=== PATIENT | female | born 1980 | race Caucasian/White ===

== ENCOUNTER 2017-07-12 14:06 | Emergency (ER) | payer OTHER ==
[2017-07-12] MEDS ORDERED: Diphtheria,Pertussis(Acell),Tetanus Vaccine 0.5 ML SDV IM ONE (14:11)
[2017-07-12] MEDS ORDERED: Ketorolac 60 MG/2 ML SDV IM ONE (14:11)
[2017-07-12] MEDS: Acetaminophen/oxyCODONE 325-5 MG Tab PO ONE ×2 (14:17→14:23)
--- NOTE | 2017-07-12 14:17 | EDM.PDOC ---
ED HPI GENERAL MEDICAL PROBLEM - General Chief Complaint: Burn Stated Complaint: RT ARM BURN Time Seen by Provider: 07/12/17 14:10 Source of Information: Reports: Patient History Limitations: Reports: No Limitations - History of Present Illness INITIAL COMMENTS - FREE TEXT/NARRATIVE: 37 yo female presents from work where she burned L R forearm/wrist areas with boiling hot water before arrival. Has ice on the areas which is giving her considerable relief. 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 Pain Score (Numeric/FACES): 6 - Related Data Allergies Allergy/AdvReac Type Severity Reaction Status Date / Time No Known Allergies Allergy Verified 07/12/17 14:13 Home Meds: Home Meds NK [No Known Home Meds] 07/12/17 [History] ED ROS GENERAL - Review of Systems Review Of Systems: See Below Constitutional: Reports: No Symptoms HEENT: Reports: No Symptoms Respiratory: Reports: No Symptoms Cardiovascular: Reports: No Symptoms GI/Abdominal: Reports: No Symptoms : Reports: No Symptoms Skin: Reports: Burn(s), Change in Color (erythema) Neurological: Reports: No Symptoms ED EXAM, BURN/SMOKE INHALATION - Physical Exam Exam: See Below Exam Limited By: No Limitations General Appearance: Alert, WD/WN, No Apparent Distress Neurological: Alert, Oriented, CN II-XII Intact, Normal Cognition, No Motor/ Sensory Deficits Psychiatric: Normal Affect, Normal Mood Skin Exam: Warm, Erythema, Other (first and second degree vega with some blistering already of hte distal half of the R forearm and wrist and to the top of the R hand) Lymphatic: No Adenopathy Course - Vital Signs Text/Narrative:: Loose skin debrided in the ER. Silvadene cream and a sterile dressing applied. Last Recorded V/S: Last Vital Signs Temp 36.3 C 07/12/17 14:30 Pulse 117 H 07/12/17 14:30 Resp 18 07/12/17 14:30 BP 125/104 H 07/12/17 14:30 Pulse Ox 98 10/03/17 14:30 - Orders/Labs/Meds Orders: Active Orders 24 hr Category Date Time Status Vaccines to be Administered [RC] PER UNIT ROUTINE Care 07/12/17 14:11 Active Meds: Medications Discontinued Medications Generic Name Dose Route Start Last Admin Trade Name Theresa PRN Reason Stop Dose Admin Hydrocodone Bitart/Acetaminophen 1 tab 07/12/17 14:36 07/12/17 14:40 Blaine 325-5 Mg PO 07/12/17 14:37 1 tab ONETIME ONE Administration Diphtheria/Tetanus/Acell Pertussis 0.5 ml 07/12/17 14:11 07/12/17 14:17 Adacel IM 07/12/17 14:12 0.5 ml .ONCE ONE Administration Ketorolac Tromethamine 60 mg 07/12/17 14:11 07/12/17 14:18 Toradol IM 07/12/17 14:12 60 mg ONETIME ONE Administration Oxycodone/Acetaminophen 1 tab 07/12/17 14:11 07/12/17 14:23 Percocet 325-5 Mg PO 07/12/17 14:12 Not Given ONETIME ONE Silver Sulfadiazine 25 gm 07/12/17 15:28 Silvadene 1% Cream 50 Gm TOP 07/12/17 15:29 ONETIME ONE Departure - Departure Time of Disposition: 15:45 Disposition: Home, Self-Care 01 Condition: Fair Clinical Impression: Second degree burn - Discharge Information Referrals: PCP,None [Primary Care Provider] - Forms: ED Department Discharge - My Orders Last 24 Hours: My Active Orders 07/12/17 14:11 Vaccines to be Administered [RC] PER UNIT ROUTINE - Assessment/Plan Last 24 Hours: My Active Orders 07/12/17 14:11 Vaccines to be Administered [RC] PER UNIT ROUTINE
[2017-07-12 14:30] VITALS: BP 125/104
[2017-07-12] MEDS ORDERED: Acetaminophen/HYDROcodone 325-5 MG Tab PO ONE (14:36)
[2017-07-12] MEDS ORDERED: Silver Sulfadiazine 1% Crm 50 GM Tube TOP ONE ×2 (15:28→15:35)
== END 2017-07-12 16:10 | disposition home or self-care (01) ==
LOC: FB.ED 14:06
DX: T22.211A Burn of second degree of right forearm, initial encounter (principal); Z23 Encounter for immunization; X12.XXXA Contact with other hot fluids, initial encounter
CPT/HCPCS: 16025; 90471; 90715; 96360; 96372; 99000; 99283; A9270; J1885

== ENCOUNTER 2017-07-14 06:25 | Emergency (ER) | payer OTHER ==
[2017-07-14] MEDS ORDERED: Ketorolac 60 MG/2 ML SDV IM ONE (06:43)
--- NOTE | 2017-07-14 06:55 | EDM.PDOC ---
ED HPI GENERAL MEDICAL PROBLEM - General Chief Complaint: Skin Complaint Stated Complaint: RT ARM BURN PAIN Time Seen by Provider: 07/14/17 06:45 Source of Information: Reports: Patient History Limitations: Reports: No Limitations - History of Present Illness INITIAL COMMENTS - FREE TEXT/NARRATIVE: 37 yo female was seen here 2 days ago for a second degree burn of her wrist. Was given Central and told to use ibuprofen for pain. She also was told to have a wound check in the clinic today. She returns to the ER ahead of her clinic appt due to pain. She is not taking the ibuprofen as directed. 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) (Central 1 tab) - Related Data Allergies Allergy/AdvReac Type Severity Reaction Status Date / Time No Known Allergies Allergy Verified 07/12/17 14:13 Home Meds: Home Meds Acetaminophen/HYDROcodone [Central 325-5 MG] 1 - 2 tab PO Q4H PRN #24 tab [Rx] Silver Sulfadiazine [Silvadene 1% Cream 50 GM] 25 gm TOP BID #1 tube 07/12/17 [ Rx] Acetaminophen/HYDROcodone [Central 325-5 MG] 1 - 2 tab PO ASDIRECTED PRN #16 tab 07/14/17 [Rx] Silver Sulfadiazine [Silvadene 1% Cream 50 GM] 25 gm TOP BID #1 tube 07/14/17 [ Rx] Past Medical History - Past Health History Medical/Surgical History: Denies Medical/Surgical History Social & Family History - Tobacco Use Smoking Status *Q: Current Every Day Smoker Years of Tobacco use: 20 Packs/Tins Daily: 0.5 - Caffeine Use Caffeine Use: Reports: Energy Drinks, Soda - Recreational Drug Use Recreational Drug Use: No ED ROS GENERAL - Review of Systems Review Of Systems: See Below Constitutional: Reports: No Symptoms Skin: Reports: Burn(s) (L wrist ), Change in Color Neurological: Reports: No Symptoms ED EXAM, SKIN/RASH Exam: See Below Exam Limited By: No Limitations General Appearance: Alert, WD/WN, No Apparent Distress Psychiatric: Normal Affect, Normal Mood Skin: Warm, Wound/Incision (2nd degree burn to the L wrist. No surrounding erythema. Normal serous drainage. ) Location, Skin: Upper Extremity, Left (wrist) Characteristics: Confluent, Erythematous (base only, no surrounding erythema) Associated features: Tenderness Lymphatic: No Adenopathy Course - Vital Signs Text/Narrative:: Wound inspected, dressing changed. - Orders/Labs/Meds Meds: Medications Discontinued Medications Generic Name Dose Route Start Last Admin Trade Name Freq PRN Reason Stop Dose Admin Ketorolac Tromethamine 60 mg 07/14/17 06:43 Toradol IM 07/14/17 06:44 ONETIME ONE Departure - Departure Time of Disposition: 06:56 Disposition: Home, Self-Care 01 Condition: Good Clinical Impression: Burn of wrist Qualifiers: Encounter type: subsequent encounter Laterality: left Burn degree: partial thickness (2nd degree) Qualified Code(s): T23.272D - Burn of second degree of left wrist, subsequent encounter - Discharge Information Prescriptions: Acetaminophen/HYDROcodone [Central 325-5 MG] 1 - 2 tab PO ASDIRECTED PRN #16 tab PRN Reason: Pain Silver Sulfadiazine [Silvadene 1% Cream 50 GM] 25 gm TOP BID #1 tube Referrals: PCP,Not In Area [Primary Care Provider] - Forms: ED Department Discharge Additional Instructions: Take ibuprofen 400 mg every 4-6 hrs with food for pain relief. Add acetaminophen or Central for added pain relief as needed. Apply more Silvadene twice daily. Recheck or signs of infection. Keep wound clean.
[2017-07-14 07:39] VITALS: BP 119/80
== END 2017-07-14 07:20 | disposition home or self-care (01) ==
LOC: FB.ED 06:25
DX: T23.272D Burn of second degree of left wrist, subsequent encounter (principal); F17.210 Nicotine dependence, cigarettes, uncomplicated; X11.8XXD Contact with other hot tap-water, subsequent encounter
CPT/HCPCS: 96372; 99283; J1885